=== PATIENT | female | born 1955 | race African-American/Black ===

== ENCOUNTER 2023-09-05 11:34 | Observation (INO) ==
[2023-09-05] MEDS ORDERED: TUSSIONEX PENNKINETIC SUSP PO PRN (13:59)
[2023-09-05] MEDS ORDERED: ROBITUSSIN DM PO PRN (13:59)
[2023-09-05] MEDS ORDERED: NS 1/2 1,000 ML IV 1,000 ML IV ONE ×2 (14:23→19:12)
--- NOTE | 2023-09-05 14:23 | EKG ---
Test Reason : CP Blood Pressure : */* mmHG Vent. Rate : 87 BPM Atrial Rate : 87 BPM P-R Int : 104 ms QRS Dur : 66 ms QT Int : 340 ms P-R-T Axes : 57 5 47 degrees QTc Int : 409 ms Sinus rhythm with short [place] Borderline ECG No previous ECGs available Confirmed by Keshav Ashraf MD ([id number]) on 09/05/2023 2:45:50 PM Referred By: Confirmed By: Keshav Ashraf MD
[2023-09-05 14:28] LABS: BASOPHILS # (AUTO) 0.1 X10^3/uL (0.0-0.1); BASOPHILS % (AUTO) 0.5 % (0.2-1.0); EOSINOPHILS # (AUTO) 0.1 x10^3/uL (0.0-0.2); EOSINOPHILS % (AUTO) 0.6 % (0.9-2.9); HEMATOCRIT 43.9 % (36.0-47.0); HEMOGLOBIN 14.3 g/dL (12.0-16.0); LYMPHOCYTES # (AUTO) 3.8 X10^3/uL (1.3-2.9); LYMPHOCYTES % (AUTO) 21.5 % (21.0-51.0); MEAN CORPUSCULAR HEMOGLOBIN 25.6 pg (27.0-34.0); MEAN CORPUSCULAR HGB CONC 32.5 g/dL (33.0-35.0); MEAN CORPUSCULAR VOLUME 78.7 fL (80.0-100.0); MEAN PLATELET VOLUME 7.6 fL (7.4-11.0); MONOCYTES # (AUTO) 1.4 x10^3/uL (0.3-0.8); MONOCYTES % (AUTO) 8.1 % (0.0-13.0); NEUTROPHILS # (AUTO) 12.1 x10^3/uL (2.2-4.8); NEUTROPHILS % (AUTO) 69.3 % (42.0-75.0); PLATELET COUNT 290 X10^3/uL (150.0-450.0); RED BLOOD COUNT 5.59 X10^6/uL (3.5-5.4); RED CELL DISTRIBUTION WIDTH 15.8 % (11.6-16.5); WHITE BLOOD COUNT 17.5 X10^3/uL (3.6-10.0)
[2023-09-05] MEDS: NS 1/2 1,000 ML IV 1,000 ML IV SCH ×2 (14:37→14:38)
[2023-09-05] MEDS: ZOSYN VIAL 4.5 GRAMS 4.5 G in NS 100 ML IV 100 ML IV SCH ×2 (14:38→21:29)
[2023-09-05] MEDS: SOLU-Medrol 40 MG VIAL IVP SCH ×2 (14:38→20:09)
[2023-09-05 14:41] LABS: ALANINE AMINOTRANSFERASE 17 Units/L (12-78); ALBUMIN 3.3 g/dL (3.4-5.0); ALKALINE PHOSPHATASE 72 Units/L (46-116); ASPARTATE AMINO TRANSFERASE 11 Units/L (15-37); BLOOD UREA NITROGEN 14 mg/dL (7-18); CALCIUM 9.2 mg/dL (8.5-10.1); CARBON DIOXIDE 26.7 mmol/L (21-32); CHLORIDE 102 mmol/L (98-107); COR CA(FOR HYPOALB) 9.8 mg/dL (8.5-10.1); CREATININE 0.77 mg/dL (0.55-1.02); GLUCOSE 95 mg/dL (65-99); POTASSIUM 4.2 mmol/L (3.5-5.1); SODIUM 138 mmol/L (136-145); TOTAL PROTEIN 7.3 g/dL (6.4-8.2); eGFR NON BLACK RACES > 60 (>60)
[2023-09-05 15:01] VITALS: BMI 26.4
[2023-09-05] MEDS: DUONEB 0.5 MG/3 MG (3 mL) NEB SCH ×2 (17:57→20:40)
--- NOTE | 2023-09-05 18:29 | EKG ---
Test Reason : CP Blood Pressure : */* mmHG Vent. Rate : 89 BPM Atrial Rate : 89 BPM P-R Int : 92 ms QRS Dur : 66 ms QT Int : 342 ms P-R-T Axes : 64 8 53 degrees QTc Int : 416 ms Sinus rhythm with short [place] Otherwise normal ECG When compared with ECG of 05-SEP-2023 14:05, No significant change was found Confirmed by Keshav Ashraf MD ([id number]) on 09/06/2023 8:59:55 AM Referred By: Confirmed By: Keshav Ashraf MD
[2023-09-05] MEDS ORDERED: DEMEROL INJ ONE (18:31)
[2023-09-05 18:59] LABS: ABG BASE EXCESS 1.5 mmol/L (-2.0-2.0); ABG HCO3 24.6 mmol/L (22-26)
[2023-09-05 19:01] LABS: ABG ALLEN TEST POS
--- NOTE | 2023-09-05 19:47 | RAD ---
PROCEDURE: Chest X-ray 1 View .HISTORY: Pneumonia.TECHNIQUE: AP view .COMPARISON: 03/04/2021.TECHNICAL QUALITY: Satisfactory .FINDINGS:Normal size heart .Mediastinum and hilar regions show no masses or lymphadenopathy .Normal central vascularity .No pulmonary consolidation, masses, pleural fluid, or pneumothorax .No acute bony abnormality .IMPRESSION:No active cardiopulmonary disease .Electronically signed by: Vasiliy Benítez (Sep 05, 2023 19:46:12)
--- NOTE | 2023-09-05 21:30 | EKG ---
Test Reason : CP Blood Pressure : */* mmHG Vent. Rate : 90 BPM Atrial Rate : 90 BPM P-R Int : 100 ms QRS Dur : 68 ms QT Int : 346 ms P-R-T Axes : 62 -4 46 degrees QTc Int : 423 ms Sinus rhythm with short [place] Junctional ST depression, probably normal Borderline ECG When compared with ECG of 05-SEP-2023 18:13, (Unconfirmed) No significant change was found Confirmed by Edd Juan ([id number]) on 09/08/2023 12:57:47 PM Referred By: Confirmed By: Edd Juan
[2023-09-05] MEDS: DEMEROL INJ IVP PRN (23:42)
[2023-09-06] MEDS: NS 1/2 1,000 ML IV 1,000 ML IV SCH ×4 (02:27→21:00)
[2023-09-06] MEDS: DEMEROL INJ IVP PRN ×3 (04:40→21:05)
[2023-09-06] MEDS: DUONEB 0.5 MG/3 MG (3 mL) NEB SCH ×3 (05:00→20:53)
[2023-09-06] MEDS: ZOSYN VIAL 4.5 GRAMS 4.5 G in NS 100 ML IV 100 ML IV SCH ×3 (05:10→21:05)
[2023-09-06 06:39] LABS: BASOPHILS % (AUTO) 0.2 % (0.2-1.0); HEMATOCRIT 43.8 % (36.0-47.0); HEMOGLOBIN 14.2 g/dL (12.0-16.0); LYMPHOCYTES # (AUTO) 1.8 X10^3/uL (1.3-2.9); LYMPHOCYTES % (AUTO) 6.8 % (21.0-51.0); MEAN CORPUSCULAR HEMOGLOBIN 25.8 pg (27.0-34.0); MEAN CORPUSCULAR HGB CONC 32.4 g/dL (33.0-35.0); MEAN CORPUSCULAR VOLUME 79.9 fL (80.0-100.0); MEAN PLATELET VOLUME 8.5 fL (7.4-11.0); MONOCYTES # (AUTO) 0.5 x10^3/uL (0.3-0.8); NEUTROPHILS # (AUTO) 23.5 x10^3/uL (2.2-4.8); PLATELET COUNT 307 X10^3/uL (150.0-450.0); RED BLOOD COUNT 5.48 X10^6/uL (3.5-5.4); RED CELL DISTRIBUTION WIDTH 15.8 % (11.6-16.5); WHITE BLOOD COUNT 25.8 X10^3/uL (3.6-10.0)
[2023-09-06 06:55] LABS: ALANINE AMINOTRANSFERASE 17 Units/L (12-78); ALBUMIN 3.3 g/dL (3.4-5.0); ALKALINE PHOSPHATASE 72 Units/L (46-116); ASPARTATE AMINO TRANSFERASE 12 Units/L (15-37); BLOOD UREA NITROGEN 14 mg/dL (7-18); CALCIUM 9.2 mg/dL (8.5-10.1); CARBON DIOXIDE 21.2 mmol/L (21-32); CHLORIDE 100 mmol/L (98-107); COR CA(FOR HYPOALB) 9.8 mg/dL (8.5-10.1); COR NA(FOR HYPERGLY) 137 mmol/L (136-145); CREATININE 0.87 mg/dL (0.55-1.02); GLUCOSE 181 mg/dL (65-99); POTASSIUM 4.1 mmol/L (3.5-5.1); SODIUM 135 mmol/L (136-145); TOTAL PROTEIN 7.8 g/dL (6.4-8.2); eGFR NON BLACK RACES > 60 (>60)
[2023-09-06 07:29] LABS: BAND NEUTROPHILS % 2 % (0-10); PLATELET MORPHOLOGY COMMENT NORMAL (NORMAL)
[2023-09-06] MEDS: SOLU-Medrol 40 MG VIAL IVP SCH ×2 (08:46→21:01)
[2023-09-06] MEDS: TYLENOL 325 MG TAB PO PRN (10:38)
--- NOTE | 2023-09-06 11:35 | DR.H&P ---
H&P - History & Physical for Day of: H&P Date: 09/05/23 - Chief Complaint Chief Complaint: COUGH, SHORTNESS OF BREATH, CHEST PAIN - History of Present Illness History of Present Illness: IS A 68 YEAR OLD PATIENT OF OURS. MEDICAL HX INCLUDES: CVA, GERD, URINARY URGENCY, INSOMNIA, HYSTERECTOMY, APPENDECTOMY, CHOLECYSTECTOMY, AND TONSILLECTOMY. SHE ADMITS TO TESTING POSTIVE FOR COVID-19 ABOUT TWO WEEKS AGO. PATIENT COMPLAINS OF PERSISTENT SHORTNESS OF BREATH, CHEST PAIN, AND AN OCCASIONAL COUGH. SHE HAS TAKEN AUGMENTIN 875-125MG BID, A MEDROL DOSEPACK, TESSALON PERLES 200 MG Q8H PRN SINCE 08/25/23. SHE DENIES IMPROVEMENT IN SYMPTOMS DESPITE COMPLIANCE WITH MEDS. DECISION WAS MADE TO ADMIT PATIENT TO THE HOSPITAL OBSERVATION STATUS FOR FURTHER EVALUATION AND TREATMENT OF BRONCHOPNEUMONIA, CHEST PAIN RULE OUT ACUTE [place], RECENT COVID-19. ON ARRIVAL, HER VITALS WERE: 97.8-20-98%-136/69. LABS WERE OBTAINED. WBC 17.5, RBC 5.59, HGB 14.3, HCT 43.9, PLT COUNT 290, D-DIMER 0.66, SODIUM 138, POTASSIUM 4.2, CHLORIDE 102, CARBON DIOXIDE 26.7, BUN 14, CREATININE 0.77, GLUCOSE 95, CALCIUM 9.2, TOTAL BILI 1.00, AST 11, ALT 17, ALK PHOS 72, TROPONIN 4.4, TOTAL PROTEIN 7.3, ALBUMIN 3.3. ABG OBTAINED AND REVEALED: PH 7.480, PC02 33, P02 130, HC03 24.6, 02 SAT 99, A-A GRADIENT 28, FI02 28.0. BLOOD CULTURES WERE SET UP. A RESPIRATORY VIRAL PANEL WAS ALSO SET UP. A CHEST XRAY WAS OBTAINED AND REVEALED: No active cardiopulmonary disease. EKG REVEALED: SINUS RHYTHM WITH SHORT ND. HR 87 BPM. ON ADMISSION, SHE WAS STARTED ON NS AT 80 ML/HR, ZOSYN 4.5G IV TID, SOLU-MEDROL 40MG IV Q12H, DEMEROL 25MG IV Q4H PRN, ROBITUSSIN DM 10ML QID PRN, TUSSIONEX 5ML Q12H PRN, TYLENOL 650MG PO Q6H PRN, AND DUONEBS TID. WE WILL RESUME HER HOME MEDICATIONS OF PANTOPRAZOLE, CLONAZEPAM, ASPIRIN, AND MEGACE. OTHERWISE, WE PLAN TO FOLLOW UP WITH AM LABS AND CHEST XRAY AND CONTINUE TO MONITOR. TIME SPENT ON CLINICAL ASSESSMENT, REVIEWING LABS AND IMAGING, DECISION MAKING, AND DOCUMENTATION GREATER THAN 75 MINUTES. - Past Medical History Past Medical History: Dyslipidemia, CVA, Arthritis - Past Surgical History Surgical History: Appendectomy, Cholecystectomy, , Hysterectomy, Tonsillectomy - Family History Family Medical History: Diabetes Mellitus, Cancer, CA, Coronary Artery Disease, Heart Failure, Hypertension - Social History Does patient currently use any type of tobacco product: No Have you used tobacco products in the last 12 months: No Type of Tobacco Use: None Does any household member use tobacco: No Alcohol Use: None Drug Use: None - Review of Systems Constitutional: Weakness Eyes: No Symptoms Reported ENT: No Symptoms Reported Respiratory: Cough, Shortness of Breath, SOB with Excertion Cardiovascular: Chest Pain Gastrointestinal: No Symptoms Reported Genitourinary: No Symptoms Reported Musculoskeletal: No Symptoms Reported Skin: No Symptoms Reported Neurological: Weakness - Physical Exam Vital Signs: Vital Signs Temperature 98.1 F Temperature 98.3 F Pulse Rate [Brachial] 83 Pulse Rate [Brachial] 86 Respiratory Rate 20 Respiratory Rate 18 Respiratory Rate 20 Respiratory Rate 18 Respiratory Rate 18 Blood Pressure [Right Arm] 131/64 Blood Pressure [Right Arm] 130/65 O2 Sat by Pulse Oximetry 94 O2 Sat by Pulse Oximetry 98 Oriented: Normal Eyes: Normal Ear: Normal Nose: Normal Throat: Normal Respiratory: Diminished Throughout Cardiovascular: Normal : Normal Auscultation: Bowel Sounds: Normal Palpation: Normal Tenderness: Normal Skin: Normal Musculoskeletal: Normal Psychiatric: Normal Mood Description: Calm Affect: Normal Speech Pattern: Clear - Assessment/Plan (1) Bronchopneumonia Status: Acute Plan: ADMIT, SUPPLEMENTAL OXYGEN, NS AT 80 ML/HR, ZOSYN 4.5G IV TID, SOLU- MEDROL 40MG IV Q12H, DEMEROL 25MG IV Q4H PRN, ROBITUSSIN DM 10ML QID PRN, TUSSIONEX 5ML Q12H PRN, TYLENOL 650MG PO Q6H PRN, AND DUONEBS TID. WE WILL RESUME HER HOME MEDICATIONS OF PANTOPRAZOLE, CLONAZEPAM, ASPIRIN, AND MEGACE. (2) Chest pain, rule out acute myocardial infarction Status: Acute (3) COVID-19 Status: Acute (4) GERD (gastroesophageal reflux disease) Qualifiers: Esophagitis presence: esophagitis presence not specified Qualified Code(s): K21.9 - Gastro-esophageal reflux disease without esophagitis Status: Chronic (5) Insomnia Qualifiers: Insomnia type: primary Qualified Code(s): F51.01 - Primary insomnia Status: Chronic (6) History of CVA in adulthood Status: Chronic - Allergies Allergies/Adverse Reactions: Allergies Allergy/AdvReac Type Severity Reaction Status Date / Time aspirin Allergy NAUSEA Verified 12/14/22 18:49 Iodinated Contrast Media Allergy RASH Verified 12/14/22 18:49 morphine AdvReac Intermediate Verified 12/14/22 18:49 - Medications Home Medications: Home Medications Medication Instructions Recorded Confirmed aspirin 325 mg tablet 325 mg PO QDAY 09/05/23 09/05/23 clonazepam 0.5 mg tablet 0.5 mg PO QPM 09/05/23 09/05/23 megestrol 20 mg tablet 20 mg PO QDAY 09/05/23 09/05/23 pantoprazole 40 mg tablet,delayed 40 mg PO QDAY 09/05/23 09/05/23 release
[2023-09-06] MEDS: PROTONIX INJ 40 MG VIAL IVP SCH (16:20)
[2023-09-06] MEDS: MEGACE PO SCH (18:49)
[2023-09-06] MEDS: ASPIRIN PO SCH (18:49)
[2023-09-06] MEDS ORDERED: NS 1/2 1,000 ML IV 1,000 ML IV ONE (20:20)
[2023-09-06] MEDS: KLONOPIN TAB 0.5 MG PO SCH (21:02)
[2023-09-07] MEDS: DUONEB 0.5 MG/3 MG (3 mL) NEB SCH ×3 (00:01→21:20)
[2023-09-07] MEDS: ZOSYN VIAL 4.5 GRAMS 4.5 G in NS 100 ML IV 100 ML IV SCH ×3 (05:04→21:05)
[2023-09-07] MEDS: NS 1/2 1,000 ML IV 1,000 ML IV SCH ×3 (05:19→18:00)
[2023-09-07] MEDS ORDERED: MAALOX or MYLANTA PO PRN (05:22)
[2023-09-07] MEDS: DEMEROL INJ IVP PRN ×3 (05:25→20:12)
[2023-09-07 06:41] LABS: ALANINE AMINOTRANSFERASE 6 Units/L (12-78); ALBUMIN 3.1 g/dL (3.4-5.0); ALKALINE PHOSPHATASE 64 Units/L (46-116); ASPARTATE AMINO TRANSFERASE 6 Units/L (15-37); BLOOD UREA NITROGEN 12 mg/dL (7-18); CALCIUM 9.2 mg/dL (8.5-10.1); CARBON DIOXIDE 22.8 mmol/L (21-32); CHLORIDE 103 mmol/L (98-107); COR CA(FOR HYPOALB) 9.9 mg/dL (8.5-10.1); COR NA(FOR HYPERGLY) 136 mmol/L (136-145); CREATININE 0.71 mg/dL (0.55-1.02); GLUCOSE 132 mg/dL (65-99); POTASSIUM 4.6 mmol/L (3.5-5.1); SODIUM 135 mmol/L (136-145); TOTAL PROTEIN 7.1 g/dL (6.4-8.2); eGFR NON BLACK RACES > 60 (>60)
[2023-09-07 07:15] LABS: BASOPHILS % (AUTO) 0.1 % (0.2-1.0); HEMATOCRIT 41.7 % (36.0-47.0); HEMOGLOBIN 13.3 g/dL (12.0-16.0); LYMPHOCYTES # (AUTO) 1.4 X10^3/uL (1.3-2.9); LYMPHOCYTES % (AUTO) 4.4 % (21.0-51.0); MEAN CORPUSCULAR HEMOGLOBIN 25.5 pg (27.0-34.0); MEAN CORPUSCULAR HGB CONC 31.9 g/dL (33.0-35.0); MEAN CORPUSCULAR VOLUME 79.8 fL (80.0-100.0); MEAN PLATELET VOLUME 8.5 fL (7.4-11.0); MONOCYTES % (AUTO) 3.2 % (0.0-13.0); NEUTROPHILS # (AUTO) 28.3 x10^3/uL (2.2-4.8); NEUTROPHILS % (AUTO) 92.3 % (42.0-75.0); PLATELET COUNT 291 X10^3/uL (150.0-450.0); RED BLOOD COUNT 5.23 X10^6/uL (3.5-5.4)
[2023-09-07 07:18] LABS: WHITE BLOOD COUNT 30.6 X10^3/uL (3.6-10.0)
[2023-09-07 07:21] LABS: BAND NEUTROPHILS % 2 % (0-10); PLATELET MORPHOLOGY COMMENT NORMAL (NORMAL)
[2023-09-07] MEDS: MEGACE PO SCH (09:13)
[2023-09-07] MEDS: ASPIRIN PO SCH (09:13)
[2023-09-07] MEDS: PROTONIX INJ 40 MG VIAL IVP SCH (09:13)
[2023-09-07] MEDS: SOLU-Medrol 40 MG VIAL IVP SCH (09:22)
[2023-09-07] MEDS: TYLENOL 325 MG TAB PO PRN (09:29)
[2023-09-07] MEDS: LEVAQUIN PREMIX IV 500 MG 500 MG/100 ML BAG IV SCH (10:59)
[2023-09-07 11:49] LABS: BILIRUBIN,URINE NEGATIVE (NEGATIVE); BLOOD/HEMOGLOBIN,URINE NEGATIVE (NEGATIVE); GLUCOSE, URINE NEGATIVE (NEGATIVE); KETONES,URINE NEGATIVE (NEGATIVE); LEUKOCYTE ESTERASE ,URINE NEGATIVE (NEGATIVE); NITRITES,URINE NEGATIVE (NEGATIVE); PROTEIN,URINE NEGATIVE (NEGATIVE); UROBILINOGEN,URINE NORMAL (NORMAL)
[2023-09-07 11:50] LABS: APPEARANCE,URINE CLEAR (CLEAR); COLOR,URINE YELLOW (YELLOW)
[2023-09-07] MEDS: PEPCID 20 MG VIAL 20 MG in NS 50 ML IV 50 ML IV SCH ×2 (11:55→20:07)
--- NOTE | 2023-09-07 12:20 | PCM.PROG ---
Progress Note - Progress Note for Day of Date of Exam: 09/07/23 - Subjective Subjective: IS CURRENTLY OBSERVATION STATUS FOR TREATMENT OF BRONCHOPNEUMONIA AND CHEST PAIN RULE OUT ACUTE [place]. PATIENT REPORTS TO TESTING POSITIVE FOR COVID-19 ALMOST TWO WEEKS AGO. HER MEDICAL HX INCLUDES: CVA, GERD, URINARY URGENCY, INSOMNIA, HYSTERECTOMY, APPENDECTOMY, CHOLECYSTECTOMY, AND TONSILLECTOMY. TODAY, SHE IS ALERT AND ORIENTED, SITTING UP IN BED ON MORNING ROUNDS. SHE CONTINUES TO COMPLAIN OF SHORTNESS OF BREATH AND WEAKNESS, BUT DENIES CHEST PAIN THIS MORNING. SHE DOES STILL HAVE AN OCCASIONAL COUGH AND ALSO DESCRIBES SOME EPIGASTRIC PAIN AT TIMES. UPON EXAMINATION, HEART IS REGULAR IN RATE AND RHYTHM. BILATERAL LUNGS ARE NOTED WITH DIMINISHED LUNG SOUNDS THROUGHOUT. ABDOMEN IS ROUND, SOFT, NON-TENDER WITH NORMAL BOWEL SOUNDS NOTED IN ALL QUADRANTS. GOOD RANGE OF MOTION NOTED TO UPPER AND LOWER EXTREMITIES WITH NO EDEMA NOTED. HER VITALS THIS MORNING ARE: 98.4-86-20-98%-121/60. LABS WERE OBTAINED. WBC 30.6, RBC 5.23, HGB 13.3, HCT 41.7, PLT COUNT 291, SODIUM 135, P OTASSIUM 4.6, CHLORIDE 103, BUN 12, CREATININE 0.71, GLUCOSE 132, CALCIUM 9.2, TOTAL BILI 0.50, AST 6, ALT 6, ALK PHOS 64, TOTAL PROTEIN 7.1, ALBUMIN 3.1. BLOOD CULTURES ARE PENDING. SHE IS CURRENTLY RECEIVING NS AT 80 ML/HR, ZOSYN 4.5G IV TID, SOLU-MEDROL 40MG IV Q12H, DEMEROL 25MG IV Q4H PRN, ROBITUSSIN DM 10ML QID PRN, TUSSIONEX 5ML Q12H PRN, TYLENOL 650MG PO Q6H PRN, AND DUONEBS TID. WE RESUMED HER HOME MEDICATIONS OF PANTOPRAZOLE, CLONAZEPAM, ASPIRIN, AND MEGACE. DUE TO INCREASE IN WBC, WE WILL HAVE PATHOLOGY REVIEW A PERIPHERAL SMEAR. WE WILL DISCONTINUE HER SOLU-MEDROL AND ADD LEVAQUIN 500MG IV DAILY. WE WILL CONSULT DUE TO HER COMPLAINTS OF PERSISTENT EPIGASTRIC PAIN. OTHERWISE, WE WILL FOLLOW UP WITH AM LABS AND CONTINUE TO MONITOR. TIME SPENT ON CLINICAL ASSESSMENT, REVIEWING LABS AND IMAGING, DECISION MAKING, AND DOCUMENTATION GREATER THAN 45 MINUTES. - Past Medical Family Social History Past Med/Fam/Surg Hx: No changes since H&P Allergies: Allergies aspirin Allergy (Verified 12/14/22 18:49) NAUSEA Iodinated Contrast Media Allergy (Verified 12/14/22 18:49) RASH morphine Adverse Reaction (Intermediate, Verified 12/14/22 18:49) pt unsure. states she "needed medication to get it out of her system quickly" - Review of Systems ROS: No change since H&P - Vital Signs and I&O's Vital Signs: Vital Signs Respiratory Rate 20 Respiratory Rate 20 Respiratory Rate 19 Intake and Output: Intake & Output 09/05/23 09/06/23 09/07/23 09/08/23 11:59 11:59 11:59 11:59 Intake Total 1308 / 1308 2574 / 2574 Balance 1308 / 1308 2574 / 2574 - Physical Exam Oriented: Normal Eyes: Normal Ear: Normal Nose: Normal Throat: Normal Respiratory: Generalized, Diminished Cardiovascular: Normal : Normal Auscultation: Bowel Sounds: Normal Palpation: Normal Tenderness: Normal Skin: Normal Musculoskeletal: Normal Psychiatric: Normal Mood Description: Calm Affect: Normal Speech Pattern: Clear, Appropriate - Laboratory and Diagnostics Result Diagrams: 09/07/23 05:25 09/07/23 05:25 Labs: 09/05/23 14:13 Blood Blood Culture - Preliminary 09/05/23 14:05 Blood Blood Culture - Preliminary Laboratory WBC 30.6 X10^3/uL (3.6-10.0) H* 09/07/23 05:25 RBC 5.23 X10^6/uL (3.5-5.4) 09/07/23 05:25 Hgb 13.3 g/dL (12.0-16.0) 09/07/23 05:25 Hct 41.7 % (36.0-47.0) 09/07/23 05:25 MCV 79.8 fL (80.0-100.0) L 09/07/23 05:25 MCH 25.5 pg (27.0-34.0) L 09/07/23 05:25 MCHC 31.9 g/dL (33.0-35.0) L 09/07/23 05:25 RDW 16.0 % (11.6-16.5) 09/07/23 05:25 Plt Count 291 X10^3/uL (150.0-450.0) 09/07/23 05:25 Plt Count Comment Adequate (ADEQUATE) 09/07/23 05:25 MPV 8.5 fL (7.4-11.0) 09/07/23 05:25 Neut % (Auto) 92.3 % (42.0-75.0) H 09/07/23 05:25 Lymph % (Auto) 4.4 % (21.0-51.0) L 09/07/23 05:25 [place] % (Auto) 3.2 % (0.0-13.0) 09/07/23 05:25 Eos % (Auto) 0.0 % (0.9-2.9) L 09/07/23 05:25 Baso % (Auto) 0.1 % (0.2-1.0) L 09/07/23 05:25 Neut # (Auto) 28.3 x10^3/uL (2.2-4.8) H 09/07/23 05:25 Lymph # (Auto) 1.4 X10^3/uL (1.3-2.9) 09/07/23 05:25 [place] # (Auto) 1.0 x10^3/uL (0.3-0.8) H 09/07/23 05:25 Eos # (Auto) 0.0 x10^3/uL (0.0-0.2) 09/07/23 05:25 Baso # (Auto) 0.0 X10^3/uL (0.0-0.1) 09/07/23 05:25 Absolute Nucleated RBC 0.0 /100WBC 09/07/23 05:25 Total Counted 100 09/07/23 05:25 Neutrophils % (Manual) 93 % (39-76) H 09/07/23 05:25 Band Neutrophils % 2 % (0-10) 09/07/23 05:25 Lymphocytes % (Manual) 4 % (13-43) L 09/07/23 05:25 Monocytes % (Manual) 1 % (4-9) L 09/07/23 05:25 Plt Morphology Comment Normal (NORMAL) 09/07/23 05:25 RBC Morphology Normal (NORMAL) 09/07/23 05:25 D-Dimer 0.66 ug/ml (0.0-0.57) H 09/06/23 05:03 Sample Site Lr 09/05/23 18:54 ABG pH 7.480 (7.35-7.45) H 09/05/23 18:54 ABG pCO2 33.0 mmHg (35.0-45.0) L 09/05/23 18:54 ABG pO2 130.0 mmHg (80.0-100.0) H 09/05/23 18:54 ABG HCO3 24.6 mmol/L (22-26) 09/05/23 18:54 ABG O2 Saturation 99.0 % (90-100) 09/05/23 18:54 ABG Base Excess 1.5 mmol/L (-2.0-2.0) 09/05/23 18:54 [place] Test Pos 09/05/23 18:54 A-a Gradient 28.0 mmHg 09/05/23 18:54 FiO2 28.0 09/05/23 18:54 Blood Gas Comments Azeb well ae 09/05/23 18:54 Sodium 135 mmol/L (136-145) L 09/07/23 05:25 Corrected Sodium 136 mmol/L (136-145) 09/07/23 05:25 Potassium 4.6 mmol/L (3.5-5.1) 09/07/23 05:25 Chloride 103 mmol/L (98-107) 09/07/23 05:25 Carbon Dioxide 22.8 mmol/L (21-32) 09/07/23 05:25 BUN 12 mg/dL (7-18) 09/07/23 05:25 Creatinine 0.71 mg/dL (0.55-1.02) 09/07/23 05:25 Est GFR (MDRD) Af Amer > 60 (>60) 09/07/23 05:25 Est GFR (MDRD) Non-Af > 60 (>60) 09/07/23 05:25 Glucose 132 mg/dL (65-99) H 09/07/23 05:25 Calcium 9.2 mg/dL (8.5-10.1) 09/07/23 05:25 Corrected Calcium 9.9 mg/dL (8.5-10.1) 09/07/23 05:25 Total Bilirubin 0.50 mg/dL (0.2-1.0) 09/07/23 05:25 AST 6 Units/L (15-37) L 09/07/23 05:25 ALT 6 Units/L (12-78) L 09/07/23 05:25 Alkaline Phosphatase 64 Units/L (46-116) 09/07/23 05:25 Troponin I High Sens 4.7 ng/L (4.0-60.0) 09/05/23 22:15 C-Reactive Protein 2.70 mg/L (0-3.0) 09/06/23 05:03 B-Natriuretic Peptide 8.9 pg/mL (0-79) 09/06/23 05:03 Total Protein 7.1 g/dL (6.4-8.2) 09/07/23 05:25 Albumin 3.1 g/dL (3.4-5.0) L 09/07/23 05:25 Globulin 4.0 g/dL (2.5-4.5) 09/07/23 05:25 Albumin/Globulin Ratio 0.8 Ratio (1.1-2.1) L 09/07/23 05:25 Specimen Type Clean catch urine 09/07/23 11:30 Urine Color Yellow (YELLOW) 09/07/23 11:30 Urine Appearance Clear (CLEAR) 09/07/23 11:30 Urine pH 6.0 (5.0 - 8.0) 09/07/23 11:30 Ur Specific [place] 1.015 (1.000-1.030) 09/07/23 11:30 Urine Protein Negative (NEGATIVE) 09/07/23 11:30 Urine Glucose (UA) Negative (NEGATIVE) 09/07/23 11:30 Urine Ketones Negative (NEGATIVE) 09/07/23 11:30 Urine Blood Negative (NEGATIVE) 09/07/23 11:30 Urine Nitrite Negative (NEGATIVE) 09/07/23 11:30 Urine Bilirubin Negative (NEGATIVE) 09/07/23 11:30 Urine Urobilinogen Normal (NORMAL) 09/07/23 11:30 Ur Leukocyte Esterase Negative (NEGATIVE) 09/07/23 11:30 - Plan (1) Bronchopneumonia Status: Acute Plan: SUPPLEMENTAL OXYGEN, NS AT 80 ML/HR, ZOSYN 4.5G IV TID, LEVAQUIN 500MG IV DAILY, DEMEROL 25MG IV Q4H PRN, ROBITUSSIN DM 10ML QID PRN, TUSSIONEX 5ML Q12H PRN, TYLENOL 650MG PO Q6H PRN, AND DUONEBS TID. WE WILL RESUME HER HOME MEDICATIONS OF PANTOPRAZOLE, CLONAZEPAM, ASPIRIN, AND MEGACE. (2) Chest pain, rule out acute myocardial infarction Status: Acute (3) COVID-19 Status: Acute (4) Epigastric abdominal pain Status: Acute Plan: CONSULT , GENERAL SURGEON (5) GERD (gastroesophageal reflux disease) Status: Chronic Qualifiers: Esophagitis presence: esophagitis presence not specified Qualified Code(s): K21.9 - Gastro-esophageal reflux disease without esophagitis (6) Insomnia Status: Chronic Qualifiers: Insomnia type: primary Qualified Code(s): F51.01 - Primary insomnia (7) History of CVA in adulthood Status: Chronic
[2023-09-07] MEDS ORDERED: NS 1/2 1,000 ML IV 1,000 ML IV ONE (13:24)
--- NOTE | 2023-09-07 17:51 | RAD ---
EXAM: ACUTE ABDOMEN SERI ES HISTORY: ABD PAIN ; COMPARISON: 09/05/2023 TECHNIQUE: FINDINGS: The trachea is midline. The cardiac silhouette is unremarkable. The lungs are clear without focal inf iltrate or effusion. The bony thorax is unremarkable. Flat plate and upright evaluation of the abdomen demonstrates a normal bowel gas pattern. No patholog ical soft tissue mass or calcification can be observed. The bony structures are grossly intact. IMPRESSION: 1. No acute cardiopulmonary disease. 2. No evidence for acute abdominal pathology identified. THIS IS AN ELECTRONICALLY VERIFIED FINAL REPORT 09/07/2023 5:48 PM - Electronically signed by Jorge Fermin MD
[2023-09-07] MEDS: KLONOPIN TAB 0.5 MG PO SCH (20:06)
[2023-09-08] MEDS ORDERED: NS 1/2 1,000 ML IV 1,000 ML IV ONE ×3 (01:17→22:27)
[2023-09-08] MEDS: ZOSYN VIAL 4.5 GRAMS 4.5 G in NS 100 ML IV 100 ML IV SCH ×3 (05:02→21:32)
[2023-09-08] MEDS: NS 1/2 1,000 ML IV 1,000 ML IV SCH (06:07)
[2023-09-08 06:27] LABS: HEMOGLOBIN 12.8 g/dL (12.0-16.0); PLATELET COUNT 271 X10^3/uL (150.0-450.0); RED CELL DISTRIBUTION WIDTH 16.1 % (11.6-16.5)
[2023-09-08 06:35] LABS: BASOPHILS # (AUTO) 0.1 X10^3/uL (0.0-0.1); BASOPHILS % (AUTO) 0.2 % (0.2-1.0); EOSINOPHILS % (AUTO) 0.2 % (0.9-2.9); HEMATOCRIT 40.2 % (36.0-47.0); LYMPHOCYTES # (AUTO) 3.9 X10^3/uL (1.3-2.9); LYMPHOCYTES % (AUTO) 18.1 % (21.0-51.0); MEAN CORPUSCULAR HEMOGLOBIN 25.4 pg (27.0-34.0); MEAN CORPUSCULAR HGB CONC 31.8 g/dL (33.0-35.0); MEAN CORPUSCULAR VOLUME 80.1 fL (80.0-100.0); MEAN PLATELET VOLUME 8.1 fL (7.4-11.0); MONOCYTES # (AUTO) 2.3 x10^3/uL (0.3-0.8); MONOCYTES % (AUTO) 10.8 % (0.0-13.0); NEUTROPHILS # (AUTO) 15.1 x10^3/uL (2.2-4.8); NEUTROPHILS % (AUTO) 70.7 % (42.0-75.0); RED BLOOD COUNT 5.01 X10^6/uL (3.5-5.4); WHITE BLOOD COUNT 21.3 X10^3/uL (3.6-10.0)
[2023-09-08] MEDS: DUONEB 0.5 MG/3 MG (3 mL) NEB SCH ×3 (06:36→21:25)
[2023-09-08 06:53] LABS: ALANINE AMINOTRANSFERASE 13 Units/L (12-78); ALKALINE PHOSPHATASE 56 Units/L (46-116); ASPARTATE AMINO TRANSFERASE 13 Units/L (15-37); BLOOD UREA NITROGEN 13 mg/dL (7-18); CALCIUM 8.8 mg/dL (8.5-10.1); CARBON DIOXIDE 23.3 mmol/L (21-32); CHLORIDE 105 mmol/L (98-107); COR CA(FOR HYPOALB) 9.6 mg/dL (8.5-10.1); CREATININE 0.79 mg/dL (0.55-1.02); GLUCOSE 86 mg/dL (65-99); POTASSIUM 3.8 mmol/L (3.5-5.1); SODIUM 138 mmol/L (136-145); TOTAL PROTEIN 6.7 g/dL (6.4-8.2); eGFR NON BLACK RACES > 60 (>60)
[2023-09-08 07:07] LABS: BAND NEUTROPHILS % 2 % (0-10); PLATELET MORPHOLOGY COMMENT NORMAL (NORMAL)
[2023-09-08] MEDS ORDERED: CONSULT PHARMACY - POTASSIUM & MAGNESIUM XX SCH (08:00)
[2023-09-08] MEDS ORDERED: MAGNESIUM SULFATE 50% INJ VIAL ONE ×2 (08:45→22:27)
--- NOTE | 2023-09-08 08:57 | RAD ---
EXAM: CHEST, 1 VIEW HISTORY: pneumonia; COMPARISON: 09/05/2023 CXR TECHNIQUE: AP view of the chest FINDINGS: The cardiac and mediastinal contours are within normal limits. The lungs are clear without focal cons olidation or segmental collapse. No pleural effusion or pneumothorax. Series soft IMPRESSION: No acute pulmonary process radiographically. THIS IS AN ELECTRONICALLY VERIFIED FINAL REPORT 09/08/2023 8:53 AM - Electronically signed by Isaías Montero MD
[2023-09-08] MEDS ORDERED: K-DUR TAB 20 MEQ PO ONE (09:00)
[2023-09-08] MEDS: MEGACE PO SCH (09:32)
[2023-09-08] MEDS: PROTONIX INJ 40 MG VIAL IVP SCH (09:34)
[2023-09-08] MEDS: NS 1/2 1,000 ML IV 1,000 ML with MAGNESIUM SULFATE 50% INJ VIAL 1 G IV SCH ×4 (09:35→23:03)
[2023-09-08] MEDS: DEMEROL INJ IVP PRN ×2 (09:35→18:35)
[2023-09-08] MEDS: LEVAQUIN PREMIX IV 500 MG 500 MG/100 ML BAG IV SCH (09:44)
[2023-09-08] MEDS: ASPIRIN PO SCH (09:45)
[2023-09-08] MEDS: PULMICORT NEB TX 0.5 MG NEB SCH ×2 (10:11→21:25)
[2023-09-08] MEDS: PEPCID 20 MG VIAL 20 MG in NS 50 ML IV 50 ML IV SCH ×2 (10:59→21:31)
[2023-09-08] MEDS ORDERED: COLACE CAP 100 MG PO PRN (11:15)
--- NOTE | 2023-09-08 12:05 | PCM.PROG ---
Progress Note - Progress Note for Day of Date of Exam: 09/08/23 - Subjective Subjective: IS CURRENTLY OBSERVATION STATUS FOR TREATMENT OF BRONCHOPNEUMONIA AND CHEST PAIN RULE OUT ACUTE AK. PATIENT REPORTS TO TESTING POSITIVE FOR COVID-19 ALMOST TWO WEEKS AGO. HER MEDICAL HX INCLUDES: CVA, GERD, URINARY URGENCY, INSOMNIA, HYSTERECTOMY, APPENDECTOMY, CHOLECYSTECTOMY, AND TONSILLECTOMY. TODAY, SHE IS ALERT AND ORIENTED, SITTING UP IN BED ON MORNING ROUNDS. SHE CONTINUES TO COMPLAIN OF SHORTNESS OF BREATH AND WEAKNESS, BUT DENIES CHEST PAIN THIS MORNING. SHE DOES STILL HAVE AN OCCASIONAL COUGH AND ALSO DESCRIBES SOME EPIGASTRIC PAIN AT TIMES. SHE ADMITS TO OCCASIONAL NAUSEA AND SPITTING UP HER FOOD. SHE HAS RECENTLY HAD SOME UNINTENTIONAL WEIGHT LOSS. UPON EXAMINATION, HEART IS REGULAR IN RATE AND RHYTHM. BILATERAL LUNGS ARE NOTED WITH DIMINISHED LUNG SOUNDS THROUGHOUT. ABDOMEN IS ROUND, SOFT, NON-TENDER WITH NORMAL BOWEL SOUNDS NOTED IN ALL QUADRANTS. GOOD RANGE OF MOTION NOTED TO UPPER AND LOWER EXTREMITIES WITH NO EDEMA NOTED. HER VITALS THIS MORNING ARE: 97.9-100-18-98%-120/57. LABS WERE OBTAINED. WBC 21.3, RBC 5.01, HGB 12.8, HCT 40.2, PLT COUNT 271, SODIUM 138, POTASSIUM 3.8, CHLORIDE 105, BUN 13, CREATININE 0.79, GLUCOSE 86, MAGNESIUM 1.7, AST 13, ALT 13, ALK PHOS 56, TOTAL PROTEIN 6.7, ALBUMIN 3.0. BLOOD CULTURES ARE PENDING. AN ABDOMINAL SERIES WAS OBTAINED YESTERDAY AND REVEALED: The trachea is midline. The cardiac silhouette is unremarkable. The lungs are clear without focal infiltrate or effusion. The bony thorax is unremarkable. Flat plate and upright evaluation of the abdomen demonstrates a normal bowel gas pattern. No pathological soft tissue mass or calcification can be observed. The bony structures are grossly intact. SHE IS CURRENTLY RECEIVING NORMAL SALINE WITH MAGNESIUM AT 80 ML/HR, ZOSYN 4.5G IV TID, LEVAQUIN 500MG IV DAILY, FAMOTIDINE 20MG IV BID, PROTONIX 40MG IV DAILY, DEMEROL 25MG IV Q4H PRN, ROBITUSSIN DM 10ML QID PRN, TUSSIONEX 5ML Q12H PRN, TYLENOL 650MG PO Q6H PRN, AND DUONEBS TID. WE RESUMED HER HOME MEDICATIONS OF, CLONAZEPAM, ASPIRIN, AND MEGACE. WE WILL OBTAIN AN ABDOMEN/PELVIS CT WITH CONTRAST TODAY. OTHERWISE, WE WILL FOLLOW UP WITH AM LABS AND CONTINUE TO MONITOR. TIME SPENT ON CLINICAL ASSESSMENT, REVIEWING LABS AND IMAGING, DECISION MAKING, AND DOCUMENTATION GREATER THAN 45 MINUTES. - Past Medical Family Social History Past Med/Fam/Surg Hx: No changes since H&P Allergies: Allergies aspirin Allergy (Verified 12/14/22 18:49) NAUSEA Iodinated Contrast Media Allergy (Verified 12/14/22 18:49) RASH morphine Adverse Reaction (Intermediate, Verified 12/14/22 18:49) pt unsure. states she "needed medication to get it out of her system quickly" - Review of Systems ROS: No change since H&P - Vital Signs and I&O's Vital Signs: Vital Signs Temperature 97.9 F Pulse Rate [Brachial] 106 Respiratory Rate 18 Respiratory Rate 18 Respiratory Rate 18 Blood Pressure [Right Arm] 120/57 O2 Sat by Pulse Oximetry 98 Intake and Output: Intake & Output 09/06/23 09/07/23 09/08/23 09/09/23 11:59 11:59 11:59 11:59 Intake Total 1308 / 1308 2574 / 2574 3351 / 3351 Balance 1308 / 1308 2574 / 2574 3351 / 3351 - Physical Exam Oriented: Normal Eyes: Normal Ear: Normal Nose: Normal Throat: Normal Respiratory: Generalized, Diminished Cardiovascular: Normal : Normal Auscultation: Bowel Sounds: Normal Palpation: Normal Tenderness: Normal Skin: Normal Musculoskeletal: Normal Psychiatric: Normal Mood Description: Calm Affect: Normal Speech Pattern: Clear, Appropriate - Laboratory and Diagnostics Result Diagrams: 09/08/23 05:19 09/08/23 05:19 Labs: 09/07/23 16:45 Urine,Clean Catch Urine Culture - Preliminary 09/05/23 14:13 Blood Blood Culture - Preliminary 09/05/23 14:05 Blood Blood Culture - Preliminary Laboratory WBC 21.3 X10^3/uL (3.6-10.0) H D 09/08/23 05:19 RBC 5.01 X10^6/uL (3.5-5.4) 09/08/23 05:19 Hgb 12.8 g/dL (12.0-16.0) 09/08/23 05:19 Hct 40.2 % (36.0-47.0) 09/08/23 05:19 MCV 80.1 fL (80.0-100.0) 09/08/23 05:19 MCH 25.4 pg (27.0-34.0) L 09/08/23 05:19 MCHC 31.8 g/dL (33.0-35.0) L 09/08/23 05:19 RDW 16.1 % (11.6-16.5) 09/08/23 05:19 Plt Count 271 X10^3/uL (150.0-450.0) 09/08/23 05:19 Plt Count Comment Adequate (ADEQUATE) 09/08/23 05:19 MPV 8.1 fL (7.4-11.0) 09/08/23 05:19 Neut % (Auto) 70.7 % (42.0-75.0) 09/08/23 05:19 Lymph % (Auto) 18.1 % (21.0-51.0) L 09/08/23 05:19 [place] % (Auto) 10.8 % (0.0-13.0) 09/08/23 05:19 Eos % (Auto) 0.2 % (0.9-2.9) L 09/08/23 05:19 Baso % (Auto) 0.2 % (0.2-1.0) 09/08/23 05:19 Neut # (Auto) 15.1 x10^3/uL (2.2-4.8) H 09/08/23 05:19 Lymph # (Auto) 3.9 X10^3/uL (1.3-2.9) H 09/08/23 05:19 [place] # (Auto) 2.3 x10^3/uL (0.3-0.8) H 09/08/23 05:19 Eos # (Auto) 0.0 x10^3/uL (0.0-0.2) 09/08/23 05:19 Baso # (Auto) 0.1 X10^3/uL (0.0-0.1) 09/08/23 05:19 Absolute Nucleated RBC 0.1 /100WBC 09/08/23 05:19 Total Counted 100 09/08/23 05:19 Neutrophils % (Manual) 64 % (39-76) 09/08/23 05:19 Band Neutrophils % 2 % (0-10) 09/08/23 05:19 Lymphocytes % (Manual) 24 % (13-43) 09/08/23 05:19 Monocytes % (Manual) 10 % (4-9) H 09/08/23 05:19 Plt Morphology Comment Normal (NORMAL) 09/08/23 05:19 RBC Morphology Normal (NORMAL) 09/08/23 05:19 D-Dimer 0.66 ug/ml (0.0-0.57) H 09/06/23 05:03 Sample Site Lr 09/05/23 18:54 ABG pH 7.480 (7.35-7.45) H 09/05/23 18:54 ABG pCO2 33.0 mmHg (35.0-45.0) L 09/05/23 18:54 ABG pO2 130.0 mmHg (80.0-100.0) H 09/05/23 18:54 ABG HCO3 24.6 mmol/L (22-26) 09/05/23 18:54 ABG O2 Saturation 99.0 % (90-100) 09/05/23 18:54 ABG Base Excess 1.5 mmol/L (-2.0-2.0) 09/05/23 18:54 [place] Test Pos 09/05/23 18:54 A-a Gradient 28.0 mmHg 09/05/23 18:54 FiO2 28.0 09/05/23 18:54 Blood Gas Comments Azeb well ae 09/05/23 18:54 Sodium 138 mmol/L (136-145) 09/08/23 05:19 Corrected Sodium TNP 09/08/23 05:19 Potassium 3.8 mmol/L (3.5-5.1) 09/08/23 05:19 Chloride 105 mmol/L (98-107) 09/08/23 05:19 Carbon Dioxide 23.3 mmol/L (21-32) 09/08/23 05:19 BUN 13 mg/dL (7-18) 09/08/23 05:19 Creatinine 0.79 mg/dL (0.55-1.02) 09/08/23 05:19 Est GFR (MDRD) Af Amer > 60 (>60) 09/08/23 05:19 Est GFR (MDRD) Non-Af > 60 (>60) 09/08/23 05:19 Glucose 86 mg/dL (65-99) 09/08/23 05:19 Calcium 8.8 mg/dL (8.5-10.1) 09/08/23 05:19 Corrected Calcium 9.6 mg/dL (8.5-10.1) 09/08/23 05:19 Magnesium 1.7 mg/dL (2.0-2.9) L 09/08/23 05:19 Total Bilirubin 0.80 mg/dL (0.2-1.0) 09/08/23 05:19 AST 13 Units/L (15-37) L 09/08/23 05:19 ALT 13 Units/L (12-78) 09/08/23 05:19 Alkaline Phosphatase 56 Units/L (46-116) 09/08/23 05:19 Troponin I High Sens 4.7 ng/L (4.0-60.0) 09/05/23 22:15 C-Reactive Protein 2.70 mg/L (0-3.0) 09/06/23 05:03 B-Natriuretic Peptide 8.9 pg/mL (0-79) 09/06/23 05:03 Total Protein 6.7 g/dL (6.4-8.2) 09/08/23 05:19 Albumin 3.0 g/dL (3.4-5.0) L 09/08/23 05:19 Globulin 3.7 g/dL (2.5-4.5) 09/08/23 05:19 Albumin/Globulin Ratio 0.8 Ratio (1.1-2.1) L 09/08/23 05:19 Specimen Type Clean catch urine 09/07/23 11:30 Urine Color Yellow (YELLOW) 09/07/23 11:30 Urine Appearance Clear (CLEAR) 09/07/23 11:30 Urine pH 6.0 (5.0 - 8.0) 09/07/23 11:30 Ur Specific [place] 1.015 (1.000-1.030) 09/07/23 11:30 Urine Protein Negative (NEGATIVE) 09/07/23 11:30 Urine Glucose (UA) Negative (NEGATIVE) 09/07/23 11:30 Urine Ketones Negative (NEGATIVE) 09/07/23 11:30 Urine Blood Negative (NEGATIVE) 09/07/23 11:30 Urine Nitrite Negative (NEGATIVE) 09/07/23 11:30 Urine Bilirubin Negative (NEGATIVE) 09/07/23 11:30 Urine Urobilinogen Normal (NORMAL) 09/07/23 11:30 Ur Leukocyte Esterase Negative (NEGATIVE) 09/07/23 11:30 Resp Viral Panel (PCR) See scanned report 09/05/23 15:43 - Plan (1) Bronchopneumonia Status: Acute Plan: SUPPLEMENTAL OXYGEN, NS WITH MAGNESIUM AT 80 ML/HR, ZOSYN 4.5G IV TID, LEVAQUIN 500MG IV DAILY, DEMEROL 25MG IV Q4H PRN, PEPCID 20MG IV BID, PROTONIX 40MG IV DAILY, ROBITUSSIN DM 10ML QID PRN, TUSSIONEX 5ML Q12H PRN, TYLENOL 650MG PO Q6H PRN, AND DUONEBS TID. RESUMED HOME MEDICATIONS OF CLONAZEPAM, ASPIRIN, AND MEGACE. (2) Chest pain, rule out acute myocardial infarction Status: Acute (3) COVID-19 Status: Acute (4) Epigastric abdominal pain Status: Acute Plan: CONSULT , GENERAL SURGEON (5) GERD (gastroesophageal reflux disease) Status: Chronic Qualifiers: Esophagitis presence: esophagitis presence not specified Qualified Code(s): K21.9 - Gastro-esophageal reflux disease without esophagitis (6) Insomnia Status: Chronic Qualifiers: Insomnia type: primary Qualified Code(s): F51.01 - Primary insomnia (7) History of CVA in adulthood Status: Chronic
[2023-09-08] MEDS ORDERED: READI-CAT 2 ONE (12:12)
[2023-09-08] MEDS ORDERED: NS 100 ML IV 100 ML ONE (12:12)
[2023-09-08] MEDS ORDERED: OMNIPAQUE 350 mg/mL 100 mL BTL 100 ML ONE (12:12)
--- NOTE | 2023-09-08 15:50 | CT ---
EXAM:CT ABDOMEN AND PELVIS WITH CONTRASTHISTORY:ABD PAIN, WEIGHT LOSS, NAUSEA;COMPARISON:None.TECHNIQUE:Axial CT images were obtained through the abdomen and pelvis after the intravenous administration of contrast. Coronal reformatted images were included.Informed written consent was obtained prior to contrast administration.All CT scans at this facility use dose modulation, iterative reconstruction, and/or weight based dosing when appropriate to reduce radiation dose to as low as reasonably achievable.FINDINGS:LOWER THORAX: Within normal limits.ABDOMEN:LIVER: Within normal limits.GALLBLADDER: AbsentSPLEEN: Within normal limits.PANCREAS: Within normal limits.KIDNEYS: Within normal limits.ADRENAL GLANDS: Within normal limits.GI TRACT: Moderate colonic stool.LYMPH NODES: No abnormally enlarged nodes.VESSELS: Within normal limits.PERITONEUM / RETROPERITONEUM: Fat containing periumbilical herniaPELVIS:BLADDER: Within normal limits.GENITALS: Within normal limits.BONES: Multilevel degenerative changes are demonstrated throughout the spineIMPRESSION:Moderate colonic stool. No acute inflammatory changes are seen. No evidence of neoplasm. Small periumbilical fat containing hernia.THIS IS AN ELECTRONICALLY VERIFIED FINAL REPORT09/08/2023 3:47 PM - Electronically signed by Bebo Matthews MD
[2023-09-08] MEDS ORDERED: MILK OF MAGNESIA PO PRN (16:17)
[2023-09-08] MEDS: FIORICET TAB PO PRN (16:43)
[2023-09-08] MEDS: KLONOPIN TAB 0.5 MG PO SCH (21:31)
[2023-09-09] MEDS: ZOSYN VIAL 4.5 GRAMS 4.5 G in NS 100 ML IV 100 ML IV SCH ×3 (05:12→22:21)
[2023-09-09] MEDS: DUONEB 0.5 MG/3 MG (3 mL) NEB SCH ×2 (05:45→20:20)
--- NOTE | 2023-09-09 06:09 | EKG ---
Test Reason : CHEST PAIN Blood Pressure : */* mmHG Vent. Rate : 86 BPM Atrial Rate : 86 BPM P-R Int : 92 ms QRS Dur : 54 ms QT Int : 336 ms P-R-T Axes : 80 7 -17 degrees QTc Int : 402 ms Sinus rhythm with short DE baseline artifact Abnormal ECG When compared with ECG of 05-SEP-2023 21:13, ST more depressed in Inferior leads T wave inversion now evident in Inferior leads Confirmed by Keshav Ashraf MD ([id number]) on 09/09/2023 7:52:24 AM Referred By: Confirmed By: Keshav Ashraf MD
[2023-09-09 06:16] LABS: BASOPHILS % (AUTO) 0.1 % (0.2-1.0); EOSINOPHILS # (AUTO) 0.3 x10^3/uL (0.0-0.2); EOSINOPHILS % (AUTO) 1.7 % (0.9-2.9); HEMATOCRIT 40.6 % (36.0-47.0); LYMPHOCYTES # (AUTO) 5.3 X10^3/uL (1.3-2.9); LYMPHOCYTES % (AUTO) 34.2 % (21.0-51.0); MEAN CORPUSCULAR HEMOGLOBIN 25.4 pg (27.0-34.0); MEAN CORPUSCULAR VOLUME 79.5 fL (80.0-100.0); MEAN PLATELET VOLUME 7.9 fL (7.4-11.0); MONOCYTES # (AUTO) 1.4 x10^3/uL (0.3-0.8); MONOCYTES % (AUTO) 9.1 % (0.0-13.0); NEUTROPHILS # (AUTO) 8.5 x10^3/uL (2.2-4.8); NEUTROPHILS % (AUTO) 54.9 % (42.0-75.0); PLATELET COUNT 257 X10^3/uL (150.0-450.0); RED CELL DISTRIBUTION WIDTH 16.1 % (11.6-16.5); WHITE BLOOD COUNT 15.5 X10^3/uL (3.6-10.0)
[2023-09-09 06:34] LABS: ALANINE AMINOTRANSFERASE 19 Units/L (12-78); ALBUMIN 3.1 g/dL (3.4-5.0); ALKALINE PHOSPHATASE 56 Units/L (46-116); ASPARTATE AMINO TRANSFERASE 14 Units/L (15-37); BLOOD UREA NITROGEN 10 mg/dL (7-18); CALCIUM 8.8 mg/dL (8.5-10.1); CHLORIDE 103 mmol/L (98-107); COR CA(FOR HYPOALB) 9.5 mg/dL (8.5-10.1); CREATININE 0.87 mg/dL (0.55-1.02); GLUCOSE 99 mg/dL (65-99); MAGNESIUM 2.6 mg/dL (2.0-2.9); SODIUM 138 mmol/L (136-145); TOTAL PROTEIN 6.8 g/dL (6.4-8.2); eGFR NON BLACK RACES > 60 (>60)
[2023-09-09] MEDS: PULMICORT NEB TX 0.5 MG NEB SCH ×2 (08:59→20:20)
[2023-09-09] MEDS: MEGACE PO SCH (09:54)
[2023-09-09] MEDS: PEPCID 20 MG VIAL 20 MG in NS 50 ML IV 50 ML IV SCH ×2 (09:54→20:31)
[2023-09-09] MEDS: PROTONIX INJ 40 MG VIAL IVP SCH (09:54)
[2023-09-09] MEDS: ASPIRIN PO SCH (09:54)
[2023-09-09] MEDS: LEVAQUIN PREMIX IV 500 MG 500 MG/100 ML BAG IV SCH (09:55)
[2023-09-09] MEDS: DEMEROL INJ IVP PRN ×2 (09:56→19:20)
[2023-09-09] MEDS ORDERED: NS 1/2 1,000 ML IV 1,000 ML IV ONE ×2 (11:49→21:36)
[2023-09-09] MEDS: NS 1/2 1,000 ML IV 1,000 ML IV SCH ×2 (11:52→22:21)
[2023-09-09] MEDS: FIORICET TAB PO PRN (18:12)
[2023-09-09] MEDS: KLONOPIN TAB 0.5 MG PO SCH (20:30)
[2023-09-09 23:43] VITALS: RESP 18
[2023-09-10] MEDS: ZOSYN VIAL 4.5 GRAMS 4.5 G in NS 100 ML IV 100 ML IV SCH (05:06)
[2023-09-10] MEDS: DUONEB 0.5 MG/3 MG (3 mL) NEB SCH (05:51)
[2023-09-10] MEDS ORDERED: ZOFRAN INJ 4 MG VIAL IVP PRN (06:28)
[2023-09-10] MEDS: DEMEROL INJ IVP PRN (06:30)
[2023-09-10 06:38] LABS: BASOPHILS % (AUTO) 0.2 % (0.2-1.0); EOSINOPHILS # (AUTO) 0.3 x10^3/uL (0.0-0.2); EOSINOPHILS % (AUTO) 2.2 % (0.9-2.9); HEMATOCRIT 37.4 % (36.0-47.0); LYMPHOCYTES % (AUTO) 33.1 % (21.0-51.0); MEAN CORPUSCULAR HEMOGLOBIN 25.7 pg (27.0-34.0); MEAN CORPUSCULAR HGB CONC 32.1 g/dL (33.0-35.0); MEAN CORPUSCULAR VOLUME 80.1 fL (80.0-100.0); MEAN PLATELET VOLUME 7.5 fL (7.4-11.0); MONOCYTES # (AUTO) 1.1 x10^3/uL (0.3-0.8); MONOCYTES % (AUTO) 9.3 % (0.0-13.0); NEUTROPHILS # (AUTO) 6.7 x10^3/uL (2.2-4.8); NEUTROPHILS % (AUTO) 55.2 % (42.0-75.0); PLATELET COUNT 222 X10^3/uL (150.0-450.0); RED BLOOD COUNT 4.67 X10^6/uL (3.5-5.4); RED CELL DISTRIBUTION WIDTH 16.3 % (11.6-16.5); WHITE BLOOD COUNT 12.1 X10^3/uL (3.6-10.0)
[2023-09-10 06:55] LABS: ALANINE AMINOTRANSFERASE 15 Units/L (12-78); ALBUMIN 2.7 g/dL (3.4-5.0); ALKALINE PHOSPHATASE 52 Units/L (46-116); ASPARTATE AMINO TRANSFERASE 13 Units/L (15-37); BLOOD UREA NITROGEN 13 mg/dL (7-18); CALCIUM 8.5 mg/dL (8.5-10.1); CHLORIDE 104 mmol/L (98-107); COR CA(FOR HYPOALB) 9.5 mg/dL (8.5-10.1); CREATININE 0.83 mg/dL (0.55-1.02); GLUCOSE 96 mg/dL (65-99); POTASSIUM 4.3 mmol/L (3.5-5.1); SODIUM 139 mmol/L (136-145); TOTAL PROTEIN 6.1 g/dL (6.4-8.2); eGFR NON BLACK RACES > 60 (>60)
[2023-09-10] MEDS: PULMICORT NEB TX 0.5 MG NEB SCH (09:00)
[2023-09-10] MEDS: PROTONIX INJ 40 MG VIAL IVP SCH (09:54)
[2023-09-10] MEDS: ASPIRIN PO SCH (09:54)
[2023-09-10] MEDS: MEGACE PO SCH (09:55)
[2023-09-10] MEDS: PEPCID 20 MG VIAL 20 MG in NS 50 ML IV 50 ML IV SCH (09:55)
[2023-09-10] MEDS: LEVAQUIN PREMIX IV 500 MG 500 MG/100 ML BAG IV SCH (09:55)
[2023-09-10 10:52] VITALS: BP 107/58; PULSE 85; TEMP 98
[2023-09-10 13:19] VITALS: O2SAT 96
== END 2023-09-10 13:15 | disposition home or self-care (01) ==
LOC: MED/SURG
PROVIDERS: ADMIT Internal Medicine; ATTEND Internal Medicine
DX: R53.1 Weakness; F51.01 Primary insomnia; K21.00 Gastro-esophageal reflux disease with esophagitis, without bleeding; R07.89 Other chest pain; B96.81 Helicobacter pylori [H. pylori] as the cause of diseases classified elsewhere; E78.2 Mixed hyperlipidemia; R10.13 Epigastric pain; E83.42 Hypomagnesemia; J18.0 Bronchopneumonia, unspecified organism; R06.02 Shortness of breath; U07.1 COVID-19; Z86.73 Personal history of transient ischemic attack (TIA), and cerebral infarction without residual deficits; R13.11 Dysphagia, oral phase